=== PATIENT | female | born 1965 | race Caucasian/White ===

== ENCOUNTER 2023-08-03 06:19 | Emergency (ER) | payer BC ==
[2023-08-03] MEDS: Amoxicillin/Clavulanate K 875-125 MG Tab PO ONE (06:35)
== END 2023-08-03 06:41 | disposition home or self-care (01) ==
LOC: VM.ED 06:19
DX: J02.9 Acute pharyngitis, unspecified (principal)
CPT/HCPCS: 99283; A9270